=== PATIENT | female | born 1950 | race Caucasian/White ===

== ENCOUNTER 2017-05-18 16:21 | Observation (INO) | payer MEDICARE ==
[2017-05-18 17:01] VITALS: RESP 20; O2SAT 98
--- NOTE | 2017-05-18 17:28 | C.PDOC ---
History Of Present Illness <Lindsey Ibarra - Last Filed: 05/18/17 18:45> <Cathy Infante - Last Filed: 05/18/17 21:30> 67 YO FEMALE C/O ABDOMINAL PAIN, VOMITING, AND DIARRHEA SINCE THIS MORNING. PT DESCRIBES ABDOMINAL PAIN "PRESSURE". DENIES FEVER, CHILLS, CHEST PAIN, SOB, OR OTHER ASSOCIATED SYMPTOMS. EXAM MOD DISTRESS BILATERAL LOWER QUADRANT TENDERNESS REM NEG (Fred,Lindsey) History Per: Patient History/Exam Limitations: no limitations Onset/Duration Of Symptoms: Days Current Symptoms Are (Timing): Still Present Quality Of Discomfort: Pressure, "Pain" Associated Symptoms: Vomiting, Diarrhea. denies: Fever, Chills, Urinary Symptoms Recent travel outside of the [place]: No <Lindsey Ibarra - Last Filed: 05/18/17 18:45> <Cathy Infante - Last Filed: 05/18/17 21:30> Time Seen by Provider: 05/18/17 17:09 Chief Complaint (Nursing): GI Problem Past Medical History Reviewed: Historical Data, Nursing Documentation, Vital Signs - Medical History PMH: Diabetes, Gastritis, HTN, Hypercholesterolemia, Osteoporosis Surgical History: Cholecystectomy Family History: States: Unknown Family Hx - Social History Hx Tobacco Use: No Hx Alcohol Use: No Hx Substance Use: No - Immunization History Hx Influenza Vaccination: No <Lindsey Ibarra - Last Filed: 05/18/17 18:45> Review Of Systems Except As Marked, All Systems Reviewed And Found Negative. Constitutional: Negative for: Fever, Chills Cardiovascular: Negative for: Chest Pain, Palpitations Respiratory: Negative for: Cough, Shortness of Breath, Wheezing Gastrointestinal: Positive for: Vomiting, Abdominal Pain, Diarrhea Skin: Negative for: Rash Neurological: Negative for: Headache, Dizziness <Lindsey Ibarra - Last Filed: 05/18/17 18:45> Physical Exam - Physical Exam Appears: Non-toxic, No Acute Distress Skin: Normal Color, Warm, Dry Head: Atraumatic, Normacephalic Oral Mucosa: Moist Chest: Symmetrical Cardiovascular: Rhythm Regular, No Murmur Respiratory: Normal Breath Sounds, No Rales, No Rhonchi, No Wheezing Gastrointestinal/Abdominal: Soft, Tenderness (BILATERAL LOWER QUADRANTS), No Guarding, No Rebound Back: Normal Inspection, No CVA Tenderness Extremity: Normal ROM, Capillary Refill (< 2 SEC.) Extremity: Bilateral: Normal Color And Temperature Neurological/Psych: Oriented x3, Normal Speech, Normal Cognition <Lindsey Ibarra - Last Filed: 05/18/17 18:45> ED Course And Treatment - Laboratory Results Result Diagrams: 05/18/17 17:39 05/18/17 17:39 O2 Sat by Pulse Oximetry: 98 (RA) Pulse Ox Interpretation: Normal - Radiology CXR: Interpreted by Me CXR Interpretation: Yes: No Acute Disease Progress Note: VBG, CT ABD/PELVIS, BLOODWORK ORDERED. TREATED WITH MORPHINE, ZOFRAN. <Lindsey Ibarra - Last Filed: 05/18/17 18:45> - Laboratory Results Result Diagrams: 05/18/17 17:39 05/18/17 17:39 Pulse Ox Interpretation: Normal Reevaluation Time: 21:29 Reassessment Condition: Improved <Cathy Infante - Last Filed: 05/18/17 21:30> ED OBSERVATION Date of observation admission: 05/18/17 Time of observation admission: 17:00 <Lindsey Ibarra - Last Filed: 05/18/17 18:45> Discharge: Yes <Cathy Infante - Last Filed: 05/18/17 21:30> - Observation admission statement Patient is being placed in observation because:: NVD, ABD PAIN (Lindsey Ibarra) - Goals of Observation Goals of observation are:: SX IMPROVE (FredLindsey) - Progress Note Progress Note: 05/18/17 19:00 S/O DR Nuvia INFANTE FU CT, DISPO (Lindsey Ibarra) 05/18/17 21:29 feels better. wants to go home (Cathy Infante) Disposition <FredLindsey - Last Filed: 05/18/17 18:45> Counseled Patient/Family Regarding: Studies Performed, Diagnosis, Need For Followup - Disposition Disposition Time: 21:29 <Cathy Infante - Last Filed: 05/18/17 21:30> - Disposition Disposition: HOME/ ROUTINE Condition: FAIR - Clinical Impression Clinical Impression: Nausea & vomiting, Diarrhea - Scribe Statement The provider has reviewed the documentation as recorded by the Scribe <Lindsey Ibarra - Last Filed: 05/18/17 18:45> <Cathy Infante - Last Filed: 05/18/17 21:30> - Scribe Statement SM All medical record entries made by the Scribe were at my direction and personally dictated by me. I have reviewed the chart and agree that the record accurately reflects my personal performance of the history, physical exam, medical decision making, and the department course for this patient. I have also personally directed, reviewed, and agree with the discharge instructions and disposition. (Lindsey Ibarra)
[2017-05-18 17:43] LABS: BASO % 0.1 % (0.0-2.0); EOS # 0.2 K/uL (0.0-0.7); EOS % 1.4 % (0.0-4.0); LYMPH # 0.8 K/uL (1.0-4.3); LYMPH % 5.3 % (20.0-40.0); MEAN CELL VOLUME 79.3 fL (81.0-99.0); MEAN CORPUSCULAR HEMOGLOBIN 26.5 pg (27.0-31.0); MEAN CORPUSCULAR HGB CONC 33.4 g/dL (33.0-37.0); MEAN PLATELET VOLUME 8.7 fL (7.2-11.7); MONO # 0.8 K/uL (0.0-0.8); MONO % 5.2 % (0.0-10.0); PLATELET COUNT 251 K/uL (130-400); RED CELL DISTRIBUTION WIDTH 13.8 % (11.5-14.5); WHITE BLOOD COUNT 15.8 K/uL (4.8-10.8)
[2017-05-18 17:51] LABS: VENOUS BLOOD GAS PCO2 42 mmHg (40-60)
[2017-05-18 17:58] LABS: RBC URINE 8 /hpf (0-3); URINE BACTERIA MOD (<OCC); URINE BILIRUBIN NEGATIVE (NEGATIVE); URINE COLOR Amber (YELLOW); URINE GLUCOSE (UA) NORMAL (Normal); URINE KETONE TRACE mg/dL (NEGATIVE); URINE PROTEIN 3+ mg/dL (NEGATIVE); URINE UROBILINOGEN NORMAL mg/dL (0.2-1.0); WBC URINE 11 /hpf (0-5)
[2017-05-18 18:00] LABS: URINE BLOOD 2+ (NEGATIVE); URINE LEUKOCYTE ESTERASE 1+ Leu/uL (Negative)
[2017-05-18 18:07] LABS: BLOOD UREA NITROGEN 28 mg/dL (7-17); CALCIUM 9.6 mg/dl (8.6-10.4); CARBON DIOXIDE 25 mmol/L (22-30); CHLORIDE 98 mmol/L (98-107); GFR AFRICAN-AMERICAN > 60; GLUCOSE,RANDOM 140 mg/dL (65-105); POTASSIUM 4.4 mmol/L (3.6-5.2); SODIUM 136 mmol/L (132-148)
[2017-05-18 18:08] LABS: EOSINOPHIL 4 % (0-4); NEUTROPHIL 85 % (50-75); TOTAL CELLS COUNTED 100
--- NOTE | 2017-05-18 18:08 | RAD ---
HISTORY: Sepsis Patient COMPARISON: None available. TECHNIQUE: Chest, one view. FINDINGS: Examination limited by habitus. LUNGS: No focal consolidation. Please note that chest x-ray has limited sensitivity for the detection of pulmonary masses. PLEURA: No significant pleural effusion identified. No definite pneumothorax . CARDIOVASCULAR: Heart size appears within normal limits. OSSEOUS STRUCTURES: Degenerative changes. VISUALIZED UPPER ABDOMEN: Unremarkable. OTHER FINDINGS: None. IMPRESSION: No focal consolidation, significant pleural effusion, or definite pneumothorax identified.
[2017-05-18 18:14] LABS: MAGNESIUM 1.7 mg/dL (1.6-2.3); PHOSPHOROUS 2.7 mg/dL (2.5-4.5)
[2017-05-18] MEDS ORDERED: Iohexol 350mg/ml 100 ML ONE (19:06)
[2017-05-18] MEDS ORDERED: Piperacillin/Tazobact 3.375 gm 100 ML IVPB STA (19:11)
[2017-05-18] MEDS ORDERED: Piperacillin/Tazobact 3.375 gm 100 ML IVPB ONE (19:19)
[2017-05-18] MEDS ORDERED: Sodium Chloride 0.9% 1,000 ML ONE (19:39)
--- NOTE | 2017-05-18 21:23 | CT ---
EXAM: CT Abdomen and Pelvis With Intravenous Contrast EXAM DATE/TIME: 05/18/2017 5:30 PM CLINICAL HISTORY: 67 years old, female; Pain; Abdominal pain; Generalized; Additional info: Vomiting diarrhea abd pain TECHNIQUE: Axial computed tomography images of the abdomen and pelvis with intravenous contrast. All CT scans at this facility use one or more dose reduction techniques, viz.: automated exposure control; ma/kV adjustment per patient size (including targeted exams where dose is matched to indication; i.e. head); or iterative reconstruction technique. Coronal and sagittal reformatted images were created and reviewed. CONTRAST: 100 mL of omnipaque 350 administered intravenously. COMPARISON: There are no prior studies for comparison. FINDINGS: Lower thorax: Heart size is normal. There is a hiatal hernia. There is minimal atelectasis at the lung bases. ABDOMEN: Liver: There is fatty infiltration of the liver. Gallbladder and bile ducts: Gallbladder is absent. Common duct is prominent. Pancreas: Pancreas is atrophic. Spleen: unremarkable Adrenals: unremarkable Kidneys and ureters: unremarkable Stomach and bowel: Stomach is almost empty. Rotation is normal. Small bowel is mildly distended with fluid and air. Terminal ileum is mildly distended with fluid. Appendix is not visualized. There is no pericecal inflammation. There are air-fluid levels in the right colon. Appendix: See stomach and bowel PELVIS: Bladder: unremarkable Reproductive: Uterus and adnexal structures are unremarkable. ABDOMEN and PELVIS: Intraperitoneal space: There is no free air or free fluid. Bones/joints: There are degenerative changes in the osseus structures. Soft tissues: unremarkable Vasculature: There are vascular calcifications. Lymph nodes: There is no pathologic adenopathy. IMPRESSION: No acute solid visceral abnormality; prior cholecystectomy; fluid-filled small bowel, right and transverse colon suggests ileus and possible gastroenteritis Additional findings as described above.
[2017-05-18 21:51] VITALS: BP 155/79; PULSE 77; TEMP 98.7
--- NOTE | 2017-05-20 18:08 | CARD ---
APPROVED REPORT EKG Measurement Heart [id number] ID [id number] <Conclusion> Normal sinus rhythm Rightward axis Borderline ECG
== END 2017-05-18 21:30 | disposition home or self-care (01) ==
LOC: C.ER 16:21 → C.9OBSV 17:00
PROVIDERS: ADMIT Emergency Medicine; ATTEND Emergency Medicine
DX: R11.2 Nausea with vomiting, unspecified (principal); R19.7 Diarrhea, unspecified; I10 Essential (primary) hypertension; E78.00 Pure hypercholesterolemia, unspecified
CPT/HCPCS: 71010; 74177; 80048; 81001; 82803; 83735; 84100; 85025; 85610; 85730; 87040; 96360; 96365; 96374; G0378; J2270; J2405; J2543; J7040; Q9967

== ENCOUNTER 2018-01-28 07:08 | Emergency (ER) | payer MEDICARE ==
[2018-01-28] MEDS ORDERED: Belladonna-Phenobarbital PO STA (07:24)
[2018-01-28] MEDS ORDERED: Sodium Chloride 0.9% 1,000 ML IV STA ×2 (07:24→09:06)
[2018-01-28] MEDS ORDERED: Belladonna-Phenobarbital ONE (07:36)
[2018-01-28] MEDS ORDERED: Sodium Chloride 0.9% 1,000 ML ONE ×2 (07:37→09:31)
[2018-01-28 07:59] LABS: BASO % 0.6 % (0.0-2.0); EOS # 0.2 K/uL (0.0-0.7); EOS % 4.3 % (0.0-4.0); HEMOGLOBIN 14.9 g/dL (11.0-16.0); LYMPH # 1.4 K/uL (1.0-4.3); LYMPH % 33.5 % (20.0-40.0); MEAN CELL VOLUME 80.4 fL (81.0-99.0); MEAN CORPUSCULAR HEMOGLOBIN 27.6 pg (27.0-31.0); MEAN CORPUSCULAR HGB CONC 34.4 g/dL (33.0-37.0); MEAN PLATELET VOLUME 8.4 fL (7.2-11.7); MONO # 0.6 K/uL (0.0-0.8); MONO % 13.9 % (0.0-10.0); NEUT % 47.7 % (50.0-75.0); RBC 5.39 Mil/uL (3.80-5.20); RED CELL DISTRIBUTION WIDTH 13.8 % (11.5-14.5); WHITE BLOOD COUNT 4.2 K/uL (4.8-10.8)
[2018-01-28 08:13] LABS: SQUAMOUS EPITHIAL 2 /hpf (0-5); URINE BACTERIA RARE (<OCC); URINE BILIRUBIN NEGATIVE (NEGATIVE); URINE BLOOD NEGATIVE (NEGATIVE); URINE CLARITY Clear (Clear); URINE COLOR Yellow (YELLOW); URINE GLUCOSE (UA) NORMAL (Normal); URINE LEUKOCYTE ESTERASE NEG Leu/uL (Negative); URINE PROTEIN 3+ mg/dL (NEGATIVE); URINE UROBILINOGEN NORMAL mg/dL (0.2-1.0)
[2018-01-28 08:15] LABS: ALBUMIN 3.6 g/dL (3.5-5.0); ALT/SGPT 29 U/L (9-52); AST/SGOT 31 U/L (14-36); BLOOD UREA NITROGEN 27 mg/dL (7-17); CALCIUM 9.2 mg/dl (8.6-10.4); GFR AFRICAN-AMERICAN > 60; GFR NON-AFRICAN AMERICAN > 60; LIPASE 110 U/L (23-300)
--- NOTE | 2018-01-28 08:17 | C.PDOC ---
History Of Present Illness Patient is a 67 y/o female who presents to the ED with a complaint of diarrhea for the last 3 days. Patient denies any abdominal pain, sick contact, recent travel, or antibiotic use. Notes feeling nauseous today and lightheaded. Patient has no other physical complaints for this time. Time Seen by Provider: 01/28/18 07:23 Chief Complaint (Nursing): Abdominal Pain History Per: Patient History/Exam Limitations: no limitations Onset/Duration Of Symptoms: Days (3) Current Symptoms Are (Timing): Still Present Associated Symptoms: Nausea, Other (lightheadedness ) Past Medical History Reviewed: Historical Data, Nursing Documentation, Vital Signs Vital Signs: Last Vital Signs Temp 97.9 F 01/28/18 12:02 Pulse 84 01/28/18 12:02 Resp 18 01/28/18 12:02 BP 146/87 01/28/18 12:02 Pulse Ox 99 01/28/18 12:02 - Medical History PMH: Diabetes, Gastritis, HTN, Hypercholesterolemia, Osteoporosis Surgical History: Cholecystectomy Family History: States: Unknown Family Hx - Social History Hx Tobacco Use: No Hx Alcohol Use: No Hx Substance Use: No - Immunization History Hx Influenza Vaccination: No Review Of Systems Gastrointestinal: Positive for: Nausea, Diarrhea. Negative for: Abdominal Pain Neurological: Positive for: Other (lightheaded) Physical Exam - Physical Exam Appears: Well, Non-toxic, No Acute Distress Skin: Normal Color, Warm, Dry Head: Atraumatic, Normacephalic Oral Mucosa: Moist Chest: Symmetrical Cardiovascular: Rhythm Regular, No Murmur Respiratory: Normal Breath Sounds, No Rales, No Rhonchi, No Wheezing Gastrointestinal/Abdominal: Soft, Tenderness (mild epigastric) Extremity: Normal ROM (x4) Neurological/Psych: Oriented x3, Normal Speech, Normal Cognition ED Course And Treatment - Laboratory Results Result Diagrams: 01/28/18 07:56 01/28/18 07:56 O2 Sat by Pulse Oximetry: 98 Progress Note: Protonix, Zofran, , and IV fluids administered. On re- evaluation patient feels better, tolerates po and is stable to be d/c home with PMD follow up. Disposition - Disposition Disposition: HOME/ ROUTINE Disposition Time: 11:45 Condition: STABLE Additional Instructions: Follow up within 1-2 days. Return to ED if feel worse. Prescriptions: Atropine/Hyoscyamine [] 1 - 2 tab PO .Q6-8H #40 tab Ondansetron ODT [Zofran ODT] 4 mg PO .Q4-6H PRN #20 odt PRN Reason: Nausea/Vomiting Instructions: Viral Gastroenteritis Forms: [facility] (Serbian) - Clinical Impression Clinical Impression: Gastroenteritis - Scribe Statement The provider has reviewed the documentation as recorded by the Scribe Mona Neal All medical record entries made by the Scribe were at my direction and personally dictated by me. I have reviewed the chart and agree that the record accurately reflects my personal performance of the history, physical exam, medical decision making, and the department course for this patient. I have also personally directed, reviewed, and agree with the discharge instructions and disposition.
[2018-01-28 12:03] VITALS: BP 146/87; PULSE 84; RESP 18; TEMP 97.9
[2018-01-28 17:38] VITALS: O2SAT 98
== END 2018-01-28 12:04 | disposition home or self-care (01) ==
LOC: C.ER 07:08
DX: K52.9 Noninfective gastroenteritis and colitis, unspecified (principal); I10 Essential (primary) hypertension; E78.00 Pure hypercholesterolemia, unspecified; E11.9 Type 2 diabetes mellitus without complications
CPT/HCPCS: 80053; 81001; 83690; 85025; 96361; 96374; 96375; 99284; C9113; J2405; J7040

== ENCOUNTER 2018-11-18 08:44 | Emergency (ER) | payer MEDICARE ==
--- NOTE | 2018-11-18 09:10 | C.PDOC ---
History Of Present Illness 68 year old female with PMHx of hypertension and diabetes presents to ED with complaint of elevated blood pressure for the past 5 days. Patient reports blood pressure has been in the 200s range. Patient also complains of dizziness that feels like vertigo for the past month. No acute change in dizziness over the past month. She denies any trauma or falls or Patient states that she has been taking Enalapril with improvement, but her blood pressure has remained elevated. Patient denies headache, focal neurological deficits, fall, or trauma. Chief Complaint (Nursing): Dizziness/Lightheaded History Per: Patient History/Exam Limitations: no limitations Onset/Duration Of Symptoms: Days (5) Current Symptoms Are (Timing): Still Present Associated Symptoms Preceding Syncopal Episode: Vertigo Seizure Or Post-ictal Symptoms: None Possible Causative Factor(s): Vertigo Fall Associated With With Symptoms: No Past Medical History Reviewed: Historical Data, Nursing Documentation, Vital Signs Vital Signs: Last Vital Signs Temp 98.4 F 11/18/18 08:58 Pulse 18 L 11/18/18 08:58 Resp 18 11/18/18 08:58 BP 212/107 H 11/18/18 08:58 Pulse Ox 99 11/18/18 08:58 - Medical History PMH: Diabetes, Gastritis, HTN, Hypercholesterolemia, Osteoporosis Surgical History: Cholecystectomy Family History: States: Unknown Family Hx - Social History Hx Tobacco Use: No Hx Alcohol Use: No Hx Substance Use: No - Immunization History Hx Influenza Vaccination: No Review Of Systems Constitutional: Positive for: Other (notes high blood pressure). Negative for: Fever, Chills, Weakness Eyes: Negative for: Pain, Vision Change ENT: Negative for: Ear Pain, Ear Discharge, Nose Pain, Nose Congestion, Mouth Pain Cardiovascular: Negative for: Chest Pain, Palpitations Respiratory: Negative for: Cough, Shortness of Breath, SOB with Excertion, Pleuritic Pain Gastrointestinal: Negative for: Nausea, Vomiting, Abdominal Pain, Constipation, Melena, Hematochezia Genitourinary: Negative for: Dysuria, Frequency, Incontinence, Hematuria Musculoskeletal: Negative for: Neck Pain Neurological: Positive for: Dizziness (feels like vertigo). Negative for: Weakness, Numbness, Confusion, Seizures, Altered Mental Status, Headache Physical Exam - Physical Exam Appears: Well, Non-toxic, No Acute Distress Skin: Normal Color, Warm, Dry Head: Atraumatic, Normacephalic Eye(s): bilateral: Normal Inspection, PERRL, EOMI Ear(s): Bilateral: Normal Nose: Normal, No Flaring, No Discharge Oral Mucosa: Moist Tongue: Normal Appearing, No Swelling, No Lesions Lips: Normal Appearing Teeth: Normal Dentition Gingiva: Normal Appearing Throat: Normal, No Erythema, No Exudate Neck: Normal, Normal ROM, Trachea Midline, Supple, No Other (meningeal signs) Chest: Symmetrical, No Deformity Cardiovascular: Rhythm Regular, No Edema, No Friction Rub, No Murmur, No JVD Respiratory: No Rales, No Rhonchi, No Wheezing Gastrointestinal/Abdominal: Normal Exam, Soft, No Tenderness, No Distention Back: Normal Inspection, No CVA Tenderness, No Vertebral Tenderness Extremity: Normal ROM, No Tenderness, No Pedal Edema, Capillary Refill (<2 seconds), No Swelling Extremity: Bilateral: Normal Color And Temperature Pulses: Left Dorsalis Pedis: Normal, Right Dorsalis Pedis: Normal Neurological/Psych: Oriented x3, Normal Speech, Normal Cognition, Normal Cranial Nerves, No Cerebellar Signs, Normal Motor, Normal Sensation Gait: Steady Extremity: Right: No Drift, Left: No Drift ED Course And Treatment - Laboratory Results Result Diagrams: 11/18/18 09:45 11/18/18 09:45 O2 Sat by Pulse Oximetry: 99 (in RA) - Other Rad CXR X-Ray: Interpreted by Me, Viewed By Me Interpretation: Patient Name / ID : ROBERT WAITE / [id number]. Exam Date : 11/18/2018 09:35:05 ( Approved ). Study Comment : Sex / Age : F / 68Y. Creator : sandy shane. Dictator : Laura Ross MD. Night Monitor : Jboss Architect : Laura Ross MD. Approver2 : Report Date : 11/18/2018 09:40 :35. My Comment : . Date of service: 11/18/2018. HISTORY: Dizziness. COMPARISON: 05/18/2017. TECHNIQUE: Chest PA and lateral. FINDINGS: LINES AND TUBES: None. LUNG AND PLEURA: The lungs are well inflated and clear. No pleural effusion or pneumothorax. HEART AND MEDIASTINUM: The heart is not enlarged. No aortic atherosclerotic calcifications present. The hilar and mediastinal contours are within normal limits. SKELETAL STRUCTURES: The bony structures are within normal limits for the patient's age. VISUALIZED UPPER ABDOMEN: Normal. OTHER FINDINGS: None. IMPRESSION: No active pulmonary disease. Medical Decision Making Medical Decision Makin68 year old female wit elevated blood pressure experiencing dizziness, described as vertigo by patient as well as elevated pressure. Labetalol ordered given pressures. No FND noted on exam. No cerebellar signs on exam. Pt in NAD. No other complaints. no chest pains, shortness of breath or abdominal pain. Plan: EKG CXR Labs ordered with CBC and troponin EKG: Normal sinus rhythm. 92 bpm. No STEMI. 1200 labs, imaging unremarkable 1347 imaging unremarkable, neuro exam remains stable pt notes vertigo resolved walking well, stable gait likely hypertensive urgency clear for d/c home with return indications and f/u Disposition - Disposition Referrals: Wood Gastelum MD [Staff Provider] - Arsenio Kendall MD [Staff Provider] - [facility] [Outside] [facility] [Outside] [facility] [Outside] Disposition: HOME/ ROUTINE Disposition Time: 13:48 Condition: GOOD Additional Instructions: MARIANN JONES, thank you for letting us take care of you today. Your provider was Abimael Houston and you were treated for HB PRESSURE. The emergency medical care you received today was directed at your acute symptoms. If you were prescribed any medication, please fill it and take as directed. It may take sev eral days for your symptoms to resolve. Return to the Emergency Department if your symptoms worsen, do not improve, or if you have any other problems. Please contact your doctor or call one of the physicians/clinics you have been referred to that are listed on the Patient Visit Information form that is included in your discharge packet. Bring any paperwork you were given at discharge with you along with any medications you are taking to your follow up visit. Our treatment cannot replace ongoing medical care by a primary care provider outside of the emergency department. Thank you for allowing the [facility] team to be part of your care today. If you had an X-Ray or CT scan: A Radiologist will review the ED reading if any change in treatment is needed we will contact you. If you had a blood, urine, or wound culture: It will take several days for the results, if any change in treatment is needed we will contact you. If you had an STI test: It will take 48 hours for the results. Please call after 1 week if you have not heard back. Instructions: Vertigo (a Type of Dizziness), High Blood Pressure in Adults Forms: [facility] (Malay) - Clinical Impression Clinical Impression: Dizziness, Hypertensive urgency - Scribe Statement The provider has reviewed the documentation as recorded by the Scribe (Hailee Silva) All medical record entries made by the Scribe were at my direction and personally dictated by me. I have reviewed the chart and agree that the record accurately reflects my personal performance of the history, physical exam, medical decision making, and the department course for this patient. I have also personally directed, reviewed, and agree with the discharge instructions and disposition.
[2018-11-18] MEDS ORDERED: Labetalol 25mg/5ml Syringe IVP STA (09:24)
[2018-11-18] MEDS ORDERED: Labetalol 5mg/ml (4ml) ONE (09:34)
[2018-11-18 09:49] LABS: BASO % 0.3 % (0.0-2.0); EOS # 0.2 K/uL (0.0-0.7); EOS % 2.7 % (0.0-4.0); HEMOGLOBIN 14.9 g/dL (11.0-16.0); LYMPH # 1.7 K/uL (1.0-4.3); LYMPH % 28.5 % (20.0-40.0); MEAN CELL VOLUME 81.2 fL (81.0-99.0); MEAN CORPUSCULAR HEMOGLOBIN 26.4 pg (27.0-31.0); MEAN CORPUSCULAR HGB CONC 32.5 g/dL (33.0-37.0); MEAN PLATELET VOLUME 8.7 fL (7.2-11.7); MONO # 0.4 K/uL (0.0-0.8); MONO % 7.2 % (0.0-10.0); NEUT # 3.7 K/uL (1.8-7.0); NEUT % 61.3 % (50.0-75.0); NRBC % 0.1 % (0.0-2.0); RBC 5.65 Mil/uL (3.80-5.20); RED CELL DISTRIBUTION WIDTH 13.9 % (11.5-14.5)
[2018-11-18 10:12] VITALS: RESP 16
[2018-11-18 10:15] LABS: ALB/GLOB RATIO 1.3 (1.0-2.1); ALBUMIN 3.9 g/dL (3.5-5.0); ALT/SGPT 15 U/L (9-52); AST/SGOT 30 U/L (14-36); BLOOD UREA NITROGEN 12 mg/dL (7-17); GFR NON-AFRICAN AMERICAN > 60
--- NOTE | 2018-11-18 10:22 | RAD ---
Date of service: 11/18/2018 HISTORY: Dizziness COMPARISON: 05/18/2017. TECHNIQUE: Chest PA and lateral FINDINGS: LINES AND TUBES: None. LUNG AND PLEURA: The lungs are well inflated and clear. No pleural effusion or pneumothorax. HEART AND MEDIASTINUM: The heart is not enlarged. No aortic atherosclerotic calcifications present. The hilar and mediastinal contours are within normal limits. SKELETAL STRUCTURES: The bony structures are within normal limits for the patient's age. VISUALIZED UPPER ABDOMEN: Normal. OTHER FINDINGS: None. IMPRESSION: No active pulmonary disease.
--- NOTE | 2018-11-18 13:05 | CT ---
Date of service: 11/18/2018 PROCEDURE: CT HEAD WITHOUT CONTRAST. HISTORY: dizzy COMPARISON: 11/27/2013 TECHNIQUE: Axial computed tomography images were obtained through the head/brain without intravenous contrast. Radiation dose: Total exam DLP = 977.09 mGy-cm. This CT exam was performed using one or more of the following dose reduction techniques: Automated exposure control, adjustment of the mA and/or kV according to patient size, and/or use of iterative reconstruction technique. FINDINGS: HEMORRHAGE: No intracranial hemorrhage. BRAIN: No mass effect or edema. No significant atrophy. Minimal periventricular white matter lucency consistent with chronic microvascular ischemic change. There is a solitary nodular cortical calcification in the left frontal region, unchanged from prior examination. Nonspecific. No other abnormal intracranial calcifications. VENTRICLES: Unremarkable. No hydrocephalus. CALVARIUM: Unremarkable. PARANASAL SINUSES: Unremarkable as visualized. No significant inflammatory changes. MASTOID AIR CELLS: Unremarkable as visualized. No inflammatory changes. OTHER FINDINGS: None. IMPRESSION: No intracranial mass, hemorrhage or evidence of acute infarct. Minimal chronic white matter ischemic change.
[2018-11-18 13:44] VITALS: BP 134/85; PULSE 85; TEMP 97.6; O2SAT 99
--- NOTE | 2018-11-21 13:02 | CARD ---
APPROVED REPORT Date of service: 11/18/2018 EKG Measurement Heart [id number] <Conclusion> Normal sinus rhythm Possible Left atrial enlargement Rightward axis Cannot rule out Inferior infarct, age undetermined Abnormal ECG
== END 2018-11-18 14:04 | disposition home or self-care (01) ==
LOC: C.ER 08:44
DX: I16.0 Hypertensive urgency (principal); R42 Dizziness and giddiness; E11.9 Type 2 diabetes mellitus without complications; E78.00 Pure hypercholesterolemia, unspecified